=== PATIENT | female | born 1945 | race Caucasian/White ===

== ENCOUNTER 2016-07-09 16:04 | Emergency (ER) | payer MEDICARE, BC ==
[2016-07-09] MEDS ORDERED: Acetaminophen TAB* 325 MG PO ONE (16:23)
--- NOTE | 2016-07-09 16:38 | ED ---
Upper Extremity Pain - HPI Summary HPI Summary: Patient was walking her dog today when the dog suddenly took off, pulling her to the ground in the mud and snow. She caught herself with her right arm and had immediate pain in her right shoulder, to the point that she was unable to get herself off the ground. She denies previous injury to this shoulder. She denies N/T, swelling or bruising. She is right handed. She suffered a scrape to her left cheek and forehead but did not hit her head. - History of Current Complaint Chief Complaint: EDShoulderClaUri Stated Complaint: FALL/SHOULDER INJURY Time Seen by Provider: 07/09/16 16:15 Hx Obtained From: Patient, Family/[employer] Mechanism Of Injury: Fall From A Standing Position Onset/Duration: Started Minutes Ago Timing: Constant Severity Initially: Severe Severity Currently: Severe Pain Location: Shoulder Character: Sharp, Aching Aggravating Factor(s): Movement Alleviating Factor(s): Nothing Associated Signs & Symptoms: Positive: Negative Related History: Dominant Hand Right - Allergies/Home Medications Allergies/Adverse Reactions: Allergies Allergy/AdvReac Type Severity Reaction Status Date / Time sulfer Allergy Rash Uncoded 07/09/16 16:08 Home Medications: Home Medications Hydroxychloroquine TAB* [Plaquenil TAB*] 1 tab PO BID 07/09/16 [History Confirmed 07/09/16] Lisinopril TAB* [Prinivil TAB 5 MG*] 1 tab PO BID 07/09/16 [History Confirmed ] Tofacitinib Citrate [Xeljanz] 5 mg PO BID 07/09/16 [History Confirmed 07/09/16] PMH/Surg Hx/FS Hx/Imm Hx Cardiovascular History: Reports: Hx Coronary Artery Disease Respiratory History: Reports: Hx Chronic Obstructive Pulmonary Disease (COPD) Musculoskeletal History: Reports: Hx Rheumatoid Arthritis Infectious Disease History: No Infectious Disease History: Denies: Traveled Outside the [place] in Last 30 Days - Family History Known Family History: Positive: Cardiac Disease, Hypertension - Social History Occupation: Retired Lives: With Family Alcohol Use: Rare Substance Use Type: Reports: None Smoking Status (MU): Former Smoker Cessation Counseling: Patient Advised to Stop Review of Systems Positive: Arthralgia, Myalgia, Decreased ROM Negative: Bruising Negative: Weakness, Paresthesia, Numbness All Other Systems Reviewed And Are Negative: Yes Physical Exam Triage Information Reviewed: Yes Vital Signs On Initial Exam: Initial Vitals Temp Pulse Resp BP Pulse Ox 96.9 F 57 16 123/46 90 07/09/16 16:09 07/09/16 16:09 07/09/16 16:09 07/09/16 16:09 07/09/16 16:09 Vital Signs Reviewed: Yes Appearance: Positive: Well-Appearing, Well-Nourished, Pain Distress Skin: Positive: Warm, Skin Color Reflects Adequate Perfusion, Dry, Soft Head/Face: Positive: Normal Head/Face Inspection Eyes: Positive: EOMI, MIGNON, Conjunctiva Clear ENT: Positive: Hearing grossly normal Neck: Positive: Supple, Nontender Respiratory/Lung Sounds: Positive: Breath Sounds Present Cardiovascular: Positive: Bradycardia Musculoskeletal: Positive: Limited @ - Any movement in the right shoulder is limited by pain, Pain @ - TTP right proximal humerus Neurological: Positive: Sensory/Motor Intact, Alert, Oriented to Person Place, Time, NV Bundle Intact Distally, Normal Gait Psychiatric: Positive: Affect/Mood Appropriate AVPU Assessment: Alert Procedures - Splinting Location: right shoulder Pre-Made Type: sling Pre-Proc Neuro Vasc Exam: normal Post-Proc Neuro Vasc Exam: normal Diagnostics - Vital Signs Vital Signs Temp Pulse Resp BP Pulse Ox 07/09/16 16:09 96.9 F 57 16 123/46 90 - Laboratory Lab Statement: Any lab studies that have been ordered have been reviewed, and results considered in the medical decision making process. - Radiology No standard instances Xray Interpretation: Positive (See Comments) - Right impacted proximal humerus fracture Radiology Interpretation Completed By: ED Physician Course/Dx - Diagnoses Differential Diagnosis/HQI/PQRI: Positive: Arthritis, Bursitis, Contusion, Fracture (Closed), Hematoma, Laceration, Strain, Sprain Provider Diagnoses: Closed fracture of right proximal humerus Discharge - Discharge Plan Condition: Stable Disposition: HOME Prescriptions: oxyCODONE/Acetamin 5/325 MG* [Percocet 5/325 TAB*] 1 tab PO Q4H PRN #24 tab MDD 6 PRN Reason: Pain Patient Education Materials: Arm Fracture in Adults (ED) Referrals: Chintan Ríos MD [Primary Care Provider] - Gerard Burk MD [Medical Doctor] - Additional Instructions: Please wear your sling at all times to protect your shoulder. Use the pain medication prescribed as needed for pain. Call Dr. Burk's office in the morning for an appointment for evaluation. Return to the emergency department if symptoms worsen.
--- NOTE | 2016-07-09 17:06 | RAD ---
INDICATION: Right shoulder pain COMPARISON: None. TECHNIQUE: 3 views of the right shoulder were obtained. FINDINGS: There is a comminuted and minimally displaced fracture at the surgical neck of the right humerus. Remaining visualized bones are intact and properly aligned. The glenohumeral and acromioclavicular joint spaces are properly aligned. IMPRESSION: COMMINUTED FRACTURE OF THE RIGHT HUMERUS SURGICAL NECK.
[2016-07-09] MEDS ORDERED: oxyCODONE/Acetamin 5/325 MG* TAB PO ONE (17:10)
[2016-07-09 17:16] VITALS: BP 122/93
== END 2016-07-09 17:15 | disposition home or self-care (01) ==
LOC: ED 16:04
DX: S42.201A Unspecified fracture of upper end of right humerus, initial encounter for closed fracture (principal); W19.XXXA Unspecified fall, initial encounter; Y93.K1 Activity, walking an animal; Y92.89 Other specified places as the place of occurrence of the external cause; Z87.891 Personal history of nicotine dependence
CPT/HCPCS: 99282; A9270-GY

== ENCOUNTER 2018-02-07 18:38 | Emergency (ER) | payer MEDICARE, BC ==
--- NOTE | 2018-02-07 19:29 | ED ---
Psychiatric Complaint - HPI Summary HPI Summary: This patient is a 72 year old F BIBA to [facility] c/o SI. The patient recently lost $6,000 in a scam and now may lose her house. Her family is upset with her and she is very distraught. She states it was her whole life savings but her family is supporting her financially. She states she does not really want to kill herself but she does not know what to do. She has not taken any pills in an attempt to kill herself. Her family called the police and she was brought here. Currently she does also c/o MILLS, ear pain, and sore throat. She denies blurred vision, double vision, neck pain, CP, SOB, ABD pain, increased back pain from baseline, dysuria, hematuria, blood in her stool, constipation, edema, auditory hallucinations, and visual hallucinations. Pt is currently taking warfarin. - History Of Current Complaint Chief Complaint: EDMentalHealth Hx Obtained From: Patient Onset/Duration: Still Present Timing: Constant Severity Initially: Moderate Severity Currently: Moderate Character: Depressed Aggravating Factor(s): Recent Stress Has Suicidal: Reports: Thoughts. Denies: With A Plan - Allergies/Home Medications Allergies/Adverse Reactions: Allergies Allergy/AdvReac Type Severity Reaction Status Date / Time Sulfa (Sulfonamide Allergy Rash Verified 02/07/18 18:47 Antibiotics) Home Medications: Home Medications Atorvastatin* [Lipitor*] 20 mg PO DAILY 02/07/18 [History Confirmed 02/07/18] Folic Acid 1 mg PO DAILY 02/07/18 [History Confirmed 02/07/18] Oxybutynin TAB* [Ditropan TAB*] 5 mg PO BID 02/07/18 [History Confirmed 02/07/18 ] Sertraline* [Zoloft*] 100 mg PO DAILY 02/07/18 [History Confirmed 02/07/18] Warfarin TAB(*) [Coumadin TAB(*)] 6 mg PO DAILY@1700 02/07/18 [History Confirmed 02/07/18] PMH/Surg Hx/FS Hx/Imm Hx Cardiovascular History: Reports: Hx Auto Implanted Cardiovert Defib, Hx Coronary Artery Disease Respiratory History: Reports: Hx Chronic Obstructive Pulmonary Disease (COPD) Musculoskeletal History: Reports: Hx Rheumatoid Arthritis Infectious Disease History: No Infectious Disease History: Denies: Traveled Outside the [place] in Last 30 Days - Family History Known Family History: Positive: Cardiac Disease, Hypertension - Social History Occupation: Retired Lives: With Family Alcohol Use: Rare Substance Use Type: Reports: None Smoking Status (MU): Former Smoker Review of Systems Eyes: Negative - double vision Negative: Blurred Vision ENT: Negative - auditory hallucinations, and visual hallucinations. Positive: Sore Throat, Ear Ache Negative: Chest Pain Negative: Shortness Of Breath Gastrointestinal: Negative - blood in her stool, constipation Negative: Abdominal Pain Negative: dysuria, hematuria Musculoskeletal: Negative - neck pain and increased back pain Negative: Edema Positive: Headache Positive: Depressed, Other - SI All Other Systems Reviewed And Are Negative: No Physical Exam - Summary Physical Exam Summary: Appearance: Alert, conversive, nontoxic appearing Skin: Warm, dry, no mottling, no rashes, no contusions HEENT: EOMI, PERRL, moist mucous membranes Neck: No masses on the neck, supple Respiratory: Clear to auscultation, breath sounds present, no rales, no rhonchi , no wheezes Cardiovascular: RRR, pulses are symmetrical in both lower and upper extremities Abdomen: Soft, non-tender Bowel Sounds: Present Musculoskeletal: No CVA tenderness, no obvious deformity, moving all extremities in a grossly normal manner Neurological: A&Ox3, CN II-XII Intact, moving all extremities symmetrically Psychiatric: flat affect, poor judgment, patient is tearful. Triage Information Reviewed: Yes Vital Signs On Initial Exam: Initial Vitals Temp Pulse Resp BP Pulse Ox 98 F 71 16 119/55 96 02/07/18 18:40 02/07/18 18:40 02/07/18 18:40 02/07/18 18:40 02/07/18 18:40 Vital Signs Reviewed: Yes Diagnostics - Vital Signs Vital Signs Temp Pulse Resp BP Pulse Ox 02/07/18 18:40 98 F 71 16 119/55 96 - Laboratory Result Diagrams: 02/07/18 19:49 02/07/18 19:49 Lab Statement: Any lab studies that have been ordered have been reviewed, and results considered in the medical decision making process. - EKG 193 Cardiac Rate: NL EKG Rhythm: Sinus Rhythm - at [address] Segment: Non-Specific Summary of EKG Findings: prolonged QRS, nml QTC, incomplete RBBB, LVH, Re-Evaluation - Re-Evaluation First Eval Re-Evaluation Time: 21:06 Comment: The mental health unit is aware of the patient and that she is cleared for a MHE. Course/Dx - Course Assessment/Plan: This patient is a 72 year old F [place] [facility]. The patient recently lost $6,000 in a scam and now may lose her house. Her family is upset with her and she is very distraught. She states it was her whole life savings but her family is supporting her financially. She states she does not really want to kill herself but she does not know what to do. She has not taken any pills in an attempt to kill herself. Her family called the police and she was brought here. Currently she does also c/o MILLS, ear pain, and sore throat. She denies blurred vision, double vision, neck pain, CP, SOB, ABD pain, increased back pain from baseline, dysuria, hematuria, blood in her stool, constipation, edema, auditory hallucinations, and visual hallucinations. Pt is currently taking warfarin. An EKG reveals NSR, prolonged QRS, nml QTC, incomplete RBBB, LVH,. After a MHE by Dr. Caceres the patient was offered voluntary admission. She declined so the patient was deemed stable to be discharged with a dx of unspecified depressive disorder. - Differential Dx/Clinical Impression Provider Diagnosis: Depressive disorder Discharge - Sign-Out/Discharge Documenting (check all that apply): Patient Departure - Discharge Plan Condition: Stable Disposition: HOME Prescriptions: LORazepam TAB(*) [Ativan 0.5 MG TAB (*)] 0.5 mg PO BID #14 tab MDD 2 Patient Education Materials: Depression (ED), Generalized Anxiety Disorder (ED) , Suicide Prevention (ED) Referrals: Chintan Ríos MD [Primary Care Provider] - Additional Instructions: return if worse or any new symptoms. Take all medications as previously instructed. It is important to follow up with your primary care physician. Followup with [facility] as per the referral. Take the ativan as instructed. If you need a refill, please discuss with your primary care physician or your psychiatrist. - Billing Disposition and Condition Condition: STABLE Disposition: Home - Attestation Statements Document Initiated by Scribe: Yes Documenting Scribe: Hasmukh Hussein Provider For Whom Angelese is Documenting (Include Credential): Chanel Leon MD Scribe Attestation: I, Hasmukh Hussein, scribed for Chanel Leon MD on 02/08/18 at 0322. Scribe Documentation Reviewed: Yes Provider Attestation: The documentation as recorded by the scribeHasmukh accurately reflects the service I personally performed and the decisions made by me, Chanel Leon MD
[2018-02-07 19:54] LABS: Hematocrit 33 % (35-47); Hemoglobin 11.1 g/dl (12.0-16.0); Mean Corpuscular HGB Conc 34 g/dl (31-36); Mean Corpuscular Hemoglobin 32 pg (27-31); Mean Corpuscular Volume 95 fL (80-97); Mean Platelet Volume 8.3 um3 (7.4-10.4); Platelet Count 178 10^3/ul (150-450); Red Blood Count 3.44 10^6/ul (4.00-5.40); Red Cell Distribution Width 15 % (10.5-15); White Blood Count 6.4 10^3/ul (3.5-10.8)
[2018-02-07 20:03] LABS: INR 2.33 (0.77-1.02)
[2018-02-07 20:08] LABS: ABS Basophils 0 10^3/ul (0-0.2); ABS Eosinophils 0.3 10^3/ul (0-0.6); ABS Lymphocytes 0.3 10^3/ul (1.0-4.8); ABS Monocytes 0.4 10^3/ul (0-0.8); ABS Neutrophils 5.3 10^3/ul (1.5-7.7); ABS Nucleated RBC 0 10^3/ul; Eosinophil % 4.9 % (0-6); Lymphocyte % 4.7 % (25-47); Nucleated Red Blood Cells % 0.1
[2018-02-07 20:16] LABS: EGFR Non-African American 38.3 (>60)
[2018-02-07 20:16] LABS: Urine Appearance Cloudy; Urine Blood Negative (Negative); Urine Color Yellow; Urine Ketones Negative (Negative); Urine Protein 1+(30 mg/dL) (Negative); Urine Red Blood Cell 1+(3-5/hpf) (Absent); Urine Specific Gravity 1.018 (1.010-1.030); Urine Urobilinogen Negative (Negative); Urine White Blood Cell Trace(0-5/hpf) (Absent)
[2018-02-07 23:46] VITALS: BP 145/50
[2018-02-08] MEDS ORDERED: LORazepam TAB(*) 0.5 MG PO ONE (01:50)
[2018-02-08] MEDS ORDERED: Acetaminophen TAB* 325 MG ONE (04:35)
== END 2018-02-08 03:16 | disposition home or self-care (01) ==
LOC: ED 18:38
DX: F32.9 Major depressive disorder, single episode, unspecified (principal); Z87.891 Personal history of nicotine dependence; J02.9 Acute pharyngitis, unspecified
CPT/HCPCS: 36415; 80053; 80307; 80320; 80329; 81003; 81015; 83735; 84443; 85025; 85610; 85730; 87086; 93005; 99285; A9270-GY; G0480

== ENCOUNTER 2020-03-01 13:59 | Observation (INO) ==
[2020-03-01 15:32] LABS: ABS Eosinophils 0.1 10^3/ul (0-0.6); ABS Lymphocytes 0.5 10^3/ul (1.0-4.8); ABS Monocytes 0.3 10^3/ul (0-0.8); ABS Neutrophils 2.8 10^3/ul (1.5-7.7); Eosinophil % 2.3 %; Hematocrit 36 % (35-47); Hemoglobin 11.9 g/dL (12.0-16.0); Lymphocyte % 13.2 %; Mean Corpuscular HGB Conc 33 g/dL (31-36); Mean Corpuscular Hemoglobin 32 pg (27-31); Mean Corpuscular Volume 95 fL (80-97); Mean Platelet Volume 8.6 fL (7.4-10.4); Platelet Count 212 10^3/uL (150-450); Red Blood Count 3.78 10^6 /uL (3.70-4.87); Red Cell Distribution Width 14 % (10-15); White Blood Count 3.7 10^3/uL (3.5-10.8)
[2020-03-01 15:40] LABS: INR 1.58 (0.82-1.09)
[2020-03-01 16:03] LABS: ALT 17 U/L (7-52); AST 32 U/L (13-39); Albumin/Globulin Ratio 1.4 (1-3); Alkaline Phosphatase 59 U/L (34-104); Anion Gap 9 mmol/L (2-11); BUN/Creatinine Ratio 11.9 (8-20); Blood Urea Nitrogen 16 mg/dL (6-24); CO2 Carbon Dioxide 24 mmol/L (22-32); Calcium 10.1 mg/dL (8.6-10.3); Chloride 104 mmol/L (101-111); EGFR African American 46.5 (>60); EGFR Non-African American 38.4 (>60); Globulin 2.9 g/dL (2-4); Glucose 80 mg/dL (70-100); Magnesium 1.7 mg/dL (1.9-2.7); Potassium 4.6 mmol/L (3.5-5.0); Sodium 137 mmol/L (135-145); Total Protein 6.9 g/dL (6.4-8.9)
[2020-03-01 16:07] LABS: Troponin I 0.06 ng/mL (<0.03)
[2020-03-01] MEDS ORDERED: Ondansetron 4 mg VIAL 2 MG/ML 2 ml VIAL IV PRN (17:17)
[2020-03-01] MEDS ORDERED: HYDROcodone/ACETAMIN 5/325 mg TAB PO PRN (17:19)
[2020-03-01] MEDS ORDERED: Albuterol HFA INHALER 8 gm MDI INH PRN (17:19)
[2020-03-01] MEDS ORDERED: Magnesium Sulfate 2 gm BAG 2 GM/50 ML BAG IVPB ONE (18:28)
[2020-03-01 19:00] LABS: Troponin I 0.05 ng/mL (<0.03)
[2020-03-01 19:08] LABS: % Iron Saturation 21 % (15-55); Iron 61 ug/dL (50-212); Total Iron Binding Capacity 287 mcg/dL (250-450); Transferrin 205 mg/dL (203-362); Unsaturated Iron Binding < 272 ug/dL
[2020-03-01 19:28] LABS: Ferritin 191.1 ng/mL (11-307)
[2020-03-01] MEDS: PENTOSAN POLYSULFATE 100 MG PO SCH (20:51)
[2020-03-01] MEDS: TOFACITINIB 5 MG PO SCH (20:52)
[2020-03-01 22:00] LABS: Troponin I 0.06 ng/mL (<0.03)
[2020-03-01] MEDS: CMC:Diclofenac 1% GEL (NF) 100 GM TUBE TOPICAL SCH (22:00)
[2020-03-02 06:13] LABS: ABS Eosinophils 0.1 10^3/ul (0-0.6); ABS Lymphocytes 0.3 10^3/ul (1.0-4.8); ABS Monocytes 0.5 10^3/ul (0-0.8); ABS Neutrophils 3.9 10^3/ul (1.5-7.7); Eosinophil % 1.6 %; Hematocrit 36 % (35-47); Hemoglobin 12.1 g/dL (12.0-16.0); Lymphocyte % 6.2 %; Mean Corpuscular HGB Conc 34 g/dL (31-36); Mean Corpuscular Hemoglobin 32 pg (27-31); Mean Corpuscular Volume 94 fL (80-97); Mean Platelet Volume 8.5 fL (7.4-10.4); Platelet Count 188 10^3/uL (150-450); Red Blood Count 3.83 10^6 /uL (3.70-4.87); Red Cell Distribution Width 14 % (10-15); White Blood Count 4.8 10^3/uL (3.5-10.8)
[2020-03-02 06:15] LABS: INR 1.58 (0.82-1.09)
[2020-03-02 06:29] LABS: Anion Gap 8 mmol/L (2-11); BUN/Creatinine Ratio 11.4 (8-20); Blood Urea Nitrogen 16 mg/dL (6-24); CO2 Carbon Dioxide 26 mmol/L (22-32); Calcium 9.4 mg/dL (8.6-10.3); Chloride 104 mmol/L (101-111); EGFR African American 44.6 (>60); EGFR Non-African American 36.9 (>60); Glucose 93 mg/dL (70-100); Magnesium 2.4 mg/dL (1.9-2.7); Potassium 4.2 mmol/L (3.5-5.0); Sodium 138 mmol/L (135-145)
[2020-03-02 06:33] LABS: Troponin I 0.05 ng/mL (<0.03)
[2020-03-02] MEDS ORDERED: Calcium/Vitamin D TAB 250/125 TAB PO SCH (07:30)
[2020-03-02] MEDS ORDERED: Furosemide 40 mg/4 ml IV VIAL IV SLOW PU SCH (08:00)
[2020-03-02] MEDS ORDERED: Tiotropium Brom/Olodaterol MDI INH SCH (09:00)
[2020-03-02] MEDS ORDERED: CMC:Solifenacin 5 mg TAB (NF) PO SCH (09:00)
[2020-03-02] MEDS ORDERED: HYDROcodone/ACETAMIN 5/325 mg TAB PO ONE (09:12)
[2020-03-02] MEDS: CMC:Diclofenac 1% GEL (NF) 100 GM TUBE TOPICAL SCH (09:25)
[2020-03-02] MEDS: TOFACITINIB 5 MG PO SCH (09:26)
[2020-03-02] MEDS: PENTOSAN POLYSULFATE 100 MG PO SCH ×2 (09:26→14:29)
[2020-03-02] MEDS ORDERED: TROLAMINE SALICYL 10% TOPICAL SCH (09:30)
[2020-03-02 15:14] VITALS: BP 94/44
== END 2020-03-02 16:40 | disposition home or self-care (01) ==
LOC: MEDTELE 13:59 → ED 13:59 → MEDTELE 20:12
PROVIDERS: ADMIT Internal Medicine; ATTEND Internal Medicine

== ENCOUNTER 2022-03-12 15:37 | Inpatient (IN) ==
[2022-03-12 16:28] LABS: ABS Eosinophils 0.6 10^3/ul (0-0.6); ABS Lymphocytes 0.2 10^3/ul (1.0-4.8); ABS Monocytes 0.5 10^3/ul (0-0.8); ABS Neutrophils 7.4 10^3/ul (1.5-7.7); Eosinophil % 6.9 %; Hematocrit 30 % (35-47); Hemoglobin 9.9 g/dL (12.0-16.0); Lymphocyte % 2.1 %; Mean Corpuscular HGB Conc 33 g/dL (31-36); Mean Corpuscular Hemoglobin 29 pg (27-31); Mean Corpuscular Volume 89 fL (80-97); Mean Platelet Volume 7.8 fL (7.4-10.4); Platelet Count 309 10^3/uL (150-450); Red Blood Count 3.37 10^6 /uL (3.70-4.87); Red Cell Distribution Width 15 % (10-15); White Blood Count 8.7 10^3/uL (3.5-10.8)
[2022-03-12 16:44] LABS: INR 1.2 (0.89-1.11)
[2022-03-12 17:20] LABS: Albumin 3.4 g/dL (3.2-5.2); Albumin/Globulin Ratio 1.3 (1-3); C Reactive Protein 118.25 mg/L (<8.01); Calcium 8.5 mg/dL (8.6-10.3); Globulin 2.7 g/dL (2-4); Potassium 3.4 mmol/L (3.5-5.0); Total Bilirubin 0.6 mg/dL (0.2-1.0); Total Protein 6.1 g/dL (6.4-8.9); eGFR CKD-EPI 44.9 (>60)
[2022-03-12] MEDS ORDERED: methylPREDNISolone SOD SUCC 125 mg 2 ML VIAL IV ONE (18:08)
[2022-03-12] MEDS ORDERED: Magnesium Sulfate 2 gm BAG 2 GM/50 ML BAG IVPB ONE (18:08)
[2022-03-12] MEDS ORDERED: Iodixanol (CONTRAST) 320 MG/ML 100 ML SDV IV ONE (18:21)
[2022-03-12 18:44] LABS: High Sensitivity Troponin 1 Hr 51 pg/mL (<15)
[2022-03-12] MEDS ORDERED: Furosemide 40 mg/4 ml IV VIAL IV SLOW PU ONE (20:17)
[2022-03-12] MEDS: Furosemide 20 mg/2 ml IV VIAL IV SLOW PU ONE ×2 (20:24→20:27)
[2022-03-12] MEDS ORDERED: Potassium Chlor 20 meq TAB.ER PO ONE (20:27)
[2022-03-12] MEDS ORDERED: Albuterol HFA INHALER 8 gm MDI INH PRN (21:25)
[2022-03-12] MEDS: Heparin 5000 UNITS/ML 1 mL VIAL SUBCUT SCH (21:37)
[2022-03-13] MEDS ORDERED: HYDROcodone/ACETAMIN 5/325 mg TAB PO PRN (03:42)
[2022-03-13 06:08] LABS: Calcium 8.4 mg/dL (8.6-10.3); Magnesium 1.7 mg/dL (1.9-2.7); eGFR CKD-EPI 43.7 (>60)
[2022-03-13] MEDS: Heparin 5000 UNITS/ML 1 mL VIAL SUBCUT SCH ×3 (06:17→21:33)
[2022-03-13 06:23] LABS: Ferritin 187.5 ng/mL (11-307)
[2022-03-13 06:46] LABS: ABS Lymphocytes 0.1 10^3/ul (1.0-4.8); ABS Monocytes 0.2 10^3/ul (0-0.8); ABS Neutrophils 6.7 10^3/ul (1.5-7.7); Eosinophil % 0.2 %; Hematocrit 32 % (35-47); Hemoglobin 10.5 g/dL (12.0-16.0); Lymphocyte % 1.6 %; Mean Corpuscular HGB Conc 33 g/dL (31-36); Mean Corpuscular Hemoglobin 29 pg (27-31); Mean Corpuscular Volume 88 fL (80-97); Mean Platelet Volume 8.1 fL (7.4-10.4); Nucleated Red Blood Cells % 0.1; Platelet Count 302 10^3/uL (150-450); Red Blood Count 3.64 10^6 /uL (3.70-4.87); Red Cell Distribution Width 15 % (10-15)
[2022-03-13] MEDS: Tiotropium Brom/Olodaterol MDI INH SCH (08:34)
[2022-03-13] MEDS: Fluticasone NASAL SPRAY 50MCG 16 gm SPRAY BTL INTRANASAL SCH (08:35)
[2022-03-13] MEDS: NF: Mirabegron 25 mg ER TAB (NF) PO SCH (08:42)
[2022-03-13] MEDS: TOFACITINIB 5 MG PO SCH ×2 (08:42→21:30)
[2022-03-13] MEDS ORDERED: Iron Sucrose 200 MG in NS 0.9% 100 ml BAG 100 ML IVPB ONE (15:20)
[2022-03-13] MEDS ORDERED: Magnesium Sulfate 2 gm BAG 2 GM/50 ML BAG IVPB ONE (15:30)
[2022-03-13] MEDS ORDERED: Furosemide 40 mg/4 ml IV VIAL IV ONE (15:30)
[2022-03-14] MEDS ORDERED: Furosemide 40 mg/4 ml IV VIAL IV ONE (01:00)
[2022-03-14] MEDS: Heparin 5000 UNITS/ML 1 mL VIAL SUBCUT SCH ×3 (05:41→20:52)
[2022-03-14 06:42] LABS: ABS Eosinophils 0.5 10^3/ul (0-0.6); ABS Lymphocytes 0.2 10^3/ul (1.0-4.8); ABS Monocytes 0.5 10^3/ul (0-0.8); ABS Neutrophils 7.1 10^3/ul (1.5-7.7); Eosinophil % 6.4 %; Hematocrit 33 % (35-47); Hemoglobin 11.1 g/dL (12.0-16.0); Lymphocyte % 2.4 %; Mean Corpuscular HGB Conc 33 g/dL (31-36); Mean Corpuscular Hemoglobin 29 pg (27-31); Mean Corpuscular Volume 87 fL (80-97); Mean Platelet Volume 8.1 fL (7.4-10.4); Platelet Count 314 10^3/uL (150-450); Red Blood Count 3.82 10^6 /uL (3.70-4.87); Red Cell Distribution Width 15 % (10-15); White Blood Count 8.3 10^3/uL (3.5-10.8)
[2022-03-14 07:45] LABS: Calcium 8.4 mg/dL (8.6-10.3); Potassium 3.5 mmol/L (3.5-5.0)
[2022-03-14] MEDS: Tiotropium Brom/Olodaterol MDI INH SCH (08:20)
[2022-03-14] MEDS: TOFACITINIB 5 MG PO SCH ×2 (09:21→20:49)
[2022-03-14] MEDS: NF: Mirabegron 25 mg ER TAB (NF) PO SCH (09:23)
[2022-03-14] MEDS: Fluticasone NASAL SPRAY 50MCG 16 gm SPRAY BTL INTRANASAL SCH (10:16)
[2022-03-14 13:16] LABS: C Reactive Protein 111.65 mg/L (<8.01)
[2022-03-14 14:02] LABS: eGFR CKD-EPI 35.3 (>60)
[2022-03-14 14:35] LABS: Magnesium 2.6 mg/dL (1.9-2.7)
[2022-03-14] MEDS: cefTRIAXone 1 gm/50 mL D5W 1 GM/50 ML BAG IV SCH (15:07)
[2022-03-14] MEDS: DOXYcycline 100 MG in NS 0.9% 250 ml 250 ML IVPB SCH (15:07)
[2022-03-14] MEDS ORDERED: NS 0.9% 500 ml BAG 500 ML IV ONE (19:00)
[2022-03-15] MEDS: DOXYcycline 100 MG in NS 0.9% 250 ml 250 ML IVPB SCH ×2 (01:49→14:07)
[2022-03-15] MEDS: Heparin 5000 UNITS/ML 1 mL VIAL SUBCUT SCH ×3 (05:36→21:33)
[2022-03-15] MEDS: Tiotropium Brom/Olodaterol MDI INH SCH (07:28)
[2022-03-15] MEDS ORDERED: NS 0.9% 500 ml BAG 500 ML IV ONE (09:24)
[2022-03-15 09:31] LABS: Calcium 8.5 mg/dL (8.6-10.3); Potassium 3.8 mmol/L (3.5-5.0)
[2022-03-15] MEDS: Fluticasone NASAL SPRAY 50MCG 16 gm SPRAY BTL INTRANASAL SCH (10:22)
[2022-03-15] MEDS: TOFACITINIB 5 MG PO SCH ×2 (10:23→21:32)
[2022-03-15] MEDS: NF: Mirabegron 25 mg ER TAB (NF) PO SCH (10:23)
[2022-03-15] MEDS: cefTRIAXone 1 gm/50 mL D5W 1 GM/50 ML BAG IV SCH (17:17)
[2022-03-16] MEDS: DOXYcycline 100 MG in NS 0.9% 250 ml 250 ML IVPB SCH ×2 (02:39→13:49)
[2022-03-16] MEDS: Heparin 5000 UNITS/ML 1 mL VIAL SUBCUT SCH ×3 (05:36→21:18)
[2022-03-16] MEDS: Tiotropium Brom/Olodaterol MDI INH SCH (07:37)
[2022-03-16] MEDS: Fluticasone NASAL SPRAY 50MCG 16 gm SPRAY BTL INTRANASAL SCH (09:15)
[2022-03-16] MEDS: NF: Mirabegron 25 mg ER TAB (NF) PO SCH (09:16)
[2022-03-16] MEDS: TOFACITINIB 5 MG PO SCH ×2 (09:17→21:20)
[2022-03-16] MEDS: cefTRIAXone 1 gm/50 mL D5W 1 GM/50 ML BAG IV SCH (12:08)
[2022-03-16] MEDS ORDERED: Furosemide 20 mg/2 ml IV VIAL IV SLOW PU ONE (13:45)
[2022-03-17] MEDS: DOXYcycline 100 MG in NS 0.9% 250 ml 250 ML IVPB SCH ×3 (05:23→17:23)
[2022-03-17] MEDS: Heparin 5000 UNITS/ML 1 mL VIAL SUBCUT SCH ×3 (05:37→20:48)
[2022-03-17 06:15] LABS: ABS Eosinophils 0.1 10^3/ul (0-0.6); ABS Lymphocytes 0.3 10^3/ul (1.0-4.8); ABS Monocytes 0.5 10^3/ul (0-0.8); ABS Neutrophils 6.9 10^3/ul (1.5-7.7); Eosinophil % 1.3 %; Hematocrit 28 % (35-47); Lymphocyte % 4.5 %; Mean Corpuscular HGB Conc 33 g/dL (31-36); Mean Corpuscular Hemoglobin 29 pg (27-31); Mean Corpuscular Volume 89 fL (80-97); Mean Platelet Volume 8.1 fL (7.4-10.4); Platelet Count 257 10^3/uL (150-450); Red Blood Count 3.12 10^6 /uL (3.70-4.87); Red Cell Distribution Width 16 % (10-15); White Blood Count 7.8 10^3/uL (3.5-10.8)
[2022-03-17 06:29] LABS: Calcium 7.8 mg/dL (8.6-10.3); Magnesium 1.9 mg/dL (1.9-2.7); Potassium 3.7 mmol/L (3.5-5.0); eGFR CKD-EPI 54.2 (>60)
[2022-03-17] MEDS: Tiotropium Brom/Olodaterol MDI INH SCH (07:35)
[2022-03-17] MEDS: Fluticasone NASAL SPRAY 50MCG 16 gm SPRAY BTL INTRANASAL SCH (09:48)
[2022-03-17] MEDS: TOFACITINIB 5 MG PO SCH ×2 (09:51→20:37)
[2022-03-17] MEDS: NF: Mirabegron 25 mg ER TAB (NF) PO SCH (09:52)
[2022-03-17] MEDS: cefTRIAXone 1 gm/50 mL D5W 1 GM/50 ML BAG IV SCH (11:47)
[2022-03-17] MEDS ORDERED: Cefepime ADVAN 1 GM in NS 0.9% 50 ML 50 ML IVPB SCH (12:00)
[2022-03-17] MEDS: Cefepime 1 GM in Dextrose 1 GM/50 ML BAG IV SCH ×2 (13:11→23:53)
[2022-03-17] MEDS ORDERED: NS 0.9% 500 ml BAG 500 ML IV ONE (13:56)
[2022-03-17] MEDS: methylPREDNISolone SOD SUCC 40 mg/ml 1 ml VIAL IV SCH ×2 (14:42→22:48)
[2022-03-17] MEDS: Saline NASAL SPRAY 0.65% BTL BOTH NARES SCH (20:36)
[2022-03-18] MEDS: DOXYcycline 100 MG in NS 0.9% 250 ml 250 ML IVPB SCH ×2 (04:32→16:41)
[2022-03-18] MEDS: Heparin 5000 UNITS/ML 1 mL VIAL SUBCUT SCH ×3 (05:50→21:26)
[2022-03-18 06:20] LABS: ABS Lymphocytes 0.2 10^3/ul (1.0-4.8); ABS Monocytes 0.3 10^3/ul (0-0.8); ABS Neutrophils 9.7 10^3/ul (1.5-7.7); Eosinophil % 0.1 %; Hematocrit 29 % (35-47); Hemoglobin 9.3 g/dL (12.0-16.0); Lymphocyte % 1.8 %; Mean Corpuscular HGB Conc 32 g/dL (31-36); Mean Corpuscular Hemoglobin 29 pg (27-31); Mean Corpuscular Volume 89 fL (80-97); Platelet Count 276 10^3/uL (150-450); Red Blood Count 3.27 10^6 /uL (3.70-4.87); Red Cell Distribution Width 16 % (10-15); White Blood Count 10.3 10^3/uL (3.5-10.8)
[2022-03-18 06:40] LABS: Calcium 8.2 mg/dL (8.6-10.3); Magnesium 1.8 mg/dL (1.9-2.7); Potassium 4.2 mmol/L (3.5-5.0); eGFR CKD-EPI 52.4 (>60)
[2022-03-18] MEDS: methylPREDNISolone SOD SUCC 40 mg/ml 1 ml VIAL IV SCH ×3 (06:41→22:54)
[2022-03-18] MEDS: Tiotropium Brom/Olodaterol MDI INH SCH (07:56)
[2022-03-18] MEDS: Fluticasone NASAL SPRAY 50MCG 16 gm SPRAY BTL INTRANASAL SCH (08:09)
[2022-03-18] MEDS: TOFACITINIB 5 MG PO SCH ×2 (08:09→20:41)
[2022-03-18] MEDS: Saline NASAL SPRAY 0.65% BTL BOTH NARES SCH ×2 (08:10→20:39)
[2022-03-18] MEDS: NF: Mirabegron 25 mg ER TAB (NF) PO SCH (08:11)
[2022-03-18] MEDS ORDERED: Magnesium Sulfate 2 gm BAG 2 GM/50 ML BAG IVPB ONE (09:30)
[2022-03-18] MEDS: Cefepime 1 GM in Dextrose 1 GM/50 ML BAG IV SCH (12:31)
[2022-03-19] MEDS: Cefepime 1 GM in Dextrose 1 GM/50 ML BAG IV SCH ×2 (00:46→13:55)
[2022-03-19] MEDS: DOXYcycline 100 MG in NS 0.9% 250 ml 250 ML IVPB SCH ×2 (05:03→16:35)
[2022-03-19 06:21] LABS: Hematocrit 27 % (35-47); Hemoglobin 8.9 g/dL (12.0-16.0); Mean Corpuscular HGB Conc 33 g/dL (31-36); Mean Corpuscular Hemoglobin 29 pg (27-31); Mean Corpuscular Volume 89 fL (80-97); Mean Platelet Volume 8.1 fL (7.4-10.4); Platelet Count 254 10^3/uL (150-450); Red Blood Count 3.07 10^6 /uL (3.70-4.87); Red Cell Distribution Width 16 % (10-15); White Blood Count 12.3 10^3/uL (3.5-10.8)
[2022-03-19 06:39] LABS: Albumin 2.8 g/dL (3.2-5.2); Albumin/Globulin Ratio 1.3 (1-3); C Reactive Protein 29.61 mg/L (<8.01); Calcium 7.8 mg/dL (8.6-10.3); Globulin 2.2 g/dL (2-4); Potassium 3.8 mmol/L (3.5-5.0); Total Bilirubin 0.4 mg/dL (0.2-1.0); eGFR CKD-EPI 49.7 (>60)
[2022-03-19] MEDS: methylPREDNISolone SOD SUCC 40 mg/ml 1 ml VIAL IV SCH ×3 (07:27→22:13)
[2022-03-19] MEDS: Heparin 5000 UNITS/ML 1 mL VIAL SUBCUT SCH ×3 (07:29→22:13)
[2022-03-19 08:07] LABS: ABS Lymphocytes 0.2 10^3/ul (1.0-4.8); ABS Monocytes 0.6 10^3/ul (0-0.8); ABS Neutrophils 11.6 10^3/ul (1.5-7.7); Eosinophil % 0.1 %; Lymphocyte % 1.5 %; Nucleated Red Blood Cells % 0.1
[2022-03-19] MEDS: Tiotropium Brom/Olodaterol MDI INH SCH (08:34)
[2022-03-19] MEDS: Fluticasone NASAL SPRAY 50MCG 16 gm SPRAY BTL INTRANASAL SCH (09:46)
[2022-03-19] MEDS: Saline NASAL SPRAY 0.65% BTL BOTH NARES SCH ×3 (09:46→22:21)
[2022-03-19] MEDS: NF: Mirabegron 25 mg ER TAB (NF) PO SCH (09:47)
[2022-03-19] MEDS: TOFACITINIB 5 MG PO SCH ×2 (09:47→22:12)
[2022-03-19] MEDS ORDERED: Albuterol 2.5mg/3 ml (0.083%) NEB.SOLN INH PRN (11:34)
[2022-03-20] MEDS: Cefepime 1 GM in Dextrose 1 GM/50 ML BAG IV SCH (00:40)
[2022-03-20] MEDS: Heparin 5000 UNITS/ML 1 mL VIAL SUBCUT SCH ×3 (05:45→20:47)
[2022-03-20] MEDS: Tiotropium Brom/Olodaterol MDI INH SCH (08:27)
[2022-03-20] MEDS ORDERED: Furosemide 40 mg/4 ml IV VIAL IV ONE (09:59)
[2022-03-20 10:13] LABS: Hematocrit 31 % (35-47); Hemoglobin 9.6 g/dL (12.0-16.0); Mean Corpuscular HGB Conc 31 g/dL (31-36); Mean Corpuscular Hemoglobin 28 pg (27-31); Mean Corpuscular Volume 91 fL (80-97); Mean Platelet Volume 7.7 fL (7.4-10.4); Platelet Count 309 10^3/uL (150-450); Red Blood Count 3.44 10^6 /uL (3.70-4.87); Red Cell Distribution Width 17 % (10-15); White Blood Count 13.5 10^3/uL (3.5-10.8)
[2022-03-20] MEDS: DOXYcycline 100 MG in NS 0.9% 250 ml 250 ML IVPB SCH (10:44)
[2022-03-20] MEDS: methylPREDNISolone SOD SUCC 40 mg/ml 1 ml VIAL IV SCH (10:44)
[2022-03-20] MEDS: Fluticasone NASAL SPRAY 50MCG 16 gm SPRAY BTL INTRANASAL SCH (10:45)
[2022-03-20] MEDS: Saline NASAL SPRAY 0.65% BTL BOTH NARES SCH ×2 (10:45→20:47)
[2022-03-20] MEDS: NF: Mirabegron 25 mg ER TAB (NF) PO SCH (10:48)
[2022-03-20] MEDS: TOFACITINIB 5 MG PO SCH ×2 (10:48→20:49)
[2022-03-20 10:52] LABS: ABS Lymphocytes 0.3 10^3/ul (1.0-4.8); ABS Monocytes 0.3 10^3/ul (0-0.8); ABS Neutrophils 12.8 10^3/ul (1.5-7.7); CO2 Carbon Dioxide 16 mmol/L (22-32); Calcium 7.8 mg/dL (8.6-10.3); Chloride 111 mmol/L (101-111); Eosinophil % 0.3 %; Lymphocyte % 2.1 %; Nucleated Red Blood Cells % 0.1; Sodium 140 mmol/L (135-145)
[2022-03-20 10:53] LABS: Anion Gap 13 mmol/L (2-11)
[2022-03-20 10:57] LABS: Blood Urea Nitrogen 36 mg/dL (6-24); Glucose 115 mg/dL (70-100)
[2022-03-20 12:16] LABS: Potassium, Whole Blood 3.5 mmol/L (3.4-4.5)
[2022-03-20 14:38] LABS: Adenovirus Undetected (Undetected); Bordetella parapertussis Undetected (Undetected); Bordetella pertussis Undetected (Undetected); Chlamydophila pneumoniae Undetected (Undetected); Coronavirus 229E Undetected (Undetected); Coronavirus HKU1 Undetected (Undetected); Coronavirus NL63 Undetected (Undetected); Coronavirus OC43 Undetected (Undetected); Human Metapneumovirus Undetected (Undetected); Human Rhinovirus/Enterovirus Undetected (Undetected); Influenza A Undetected (Undetected); Influenza B Undetected (Undetected); Mycoplasmoides pneumoniae Undetected (Undetected); Parainfluenza Virus 1 Undetected (Undetected); Parainfluenza Virus 2 Undetected (Undetected); Parainfluenza Virus 3 Undetected (Undetected); Parainfluenza Virus 4 Undetected (Undetected); Respiratory Syncytial Virus Undetected (Undetected); Specimen Source NASOPHARYNGEAL SWAB
[2022-03-21] MEDS: Heparin 5000 UNITS/ML 1 mL VIAL SUBCUT SCH ×3 (06:02→23:32)
[2022-03-21] MEDS: TOFACITINIB 5 MG PO SCH ×2 (08:32→20:02)
[2022-03-21] MEDS: Fluticasone NASAL SPRAY 50MCG 16 gm SPRAY BTL INTRANASAL SCH (08:32)
[2022-03-21] MEDS: Saline NASAL SPRAY 0.65% BTL BOTH NARES SCH ×2 (08:34→20:02)
[2022-03-21] MEDS: NF: Mirabegron 25 mg ER TAB (NF) PO SCH (08:34)
[2022-03-21] MEDS: Tiotropium Brom/Olodaterol MDI INH SCH (08:35)
[2022-03-21 16:53] LABS: PCO2 Arterial 28 mmHg (35-45); PO2 Arterial 60 mmHg (80-100)
[2022-03-22] MEDS: Heparin 5000 UNITS/ML 1 mL VIAL SUBCUT SCH (05:39)
[2022-03-22 06:25] LABS: Hematocrit 31 % (35-47); Hemoglobin 10.2 g/dL (12.0-16.0); Mean Corpuscular HGB Conc 33 g/dL (31-36); Mean Corpuscular Hemoglobin 29 pg (27-31); Mean Corpuscular Volume 87 fL (80-97); Platelet Count 290 10^3/uL (150-450); Red Blood Count 3.51 10^6 /uL (3.70-4.87); Red Cell Distribution Width 16 % (10-15); White Blood Count 10.3 10^3/uL (3.5-10.8)
[2022-03-22 06:51] LABS: Calcium 7.8 mg/dL (8.6-10.3); Magnesium 1.9 mg/dL (1.9-2.7); Potassium 3.2 mmol/L (3.5-5.0); eGFR CKD-EPI 54.2 (>60)
[2022-03-22] MEDS ORDERED: Potassium Chloride LIQUID 20 MEQ/15 ML LIQUID PO ONE (08:16)
[2022-03-22] MEDS: Tiotropium Brom/Olodaterol MDI INH SCH (08:57)
[2022-03-22] MEDS ORDERED: Ferric Gluconate IV 250 MG in NS 0.9% 100 ml BAG 200 ML IVPB SCH (09:00)
[2022-03-22] MEDS ORDERED: Enoxaparin 40 MG/0.4 ML SYR SUBCUT SCH (09:00)
[2022-03-22] MEDS: TOFACITINIB 5 MG PO SCH (09:29)
[2022-03-22] MEDS: Fluticasone NASAL SPRAY 50MCG 16 gm SPRAY BTL INTRANASAL SCH (09:32)
[2022-03-22] MEDS: Saline NASAL SPRAY 0.65% BTL BOTH NARES SCH (10:26)
[2022-03-22 11:05] VITALS: BP 104/63
[2022-03-22 12:05] LABS: Cyclic Citrullinated Peptide 62.2 U
== END 2022-03-22 15:55 | disposition home health service (06) | DRG 291 ==
LOC: ED 15:37 → EDHOLD 15:37 → SUATTDRO 21:13 → EDHOLD 03-13 16:42 → MED 03-13 17:29 → SUATTDRO 03-14 09:00
PROVIDERS: ADMIT Internal Medicine; ATTEND Hospitalist

== ENCOUNTER 2022-03-31 20:09 | Inpatient (IN) ==
[2022-03-31 21:44] LABS: ABS Eosinophils 0.8 10^3/ul (0-0.6); ABS Lymphocytes 0.4 10^3/ul (1.0-4.8); ABS Monocytes 0.6 10^3/ul (0-0.8); ABS Neutrophils 7.6 10^3/ul (1.5-7.7); Eosinophil % 8.3 %; Hematocrit 35 % (35-47); Hemoglobin 11.6 g/dL (12.0-16.0); Lymphocyte % 3.9 %; Mean Corpuscular HGB Conc 33 g/dL (31-36); Mean Corpuscular Hemoglobin 29 pg (27-31); Mean Corpuscular Volume 88 fL (80-97); Mean Platelet Volume 8.1 fL (7.4-10.4); Nucleated Red Blood Cells % 0.1; Platelet Count 238 10^3/uL (150-450); Red Blood Count 4.03 10^6 /uL (3.70-4.87); Red Cell Distribution Width 17 % (10-15); White Blood Count 9.4 10^3/uL (3.5-10.8)
[2022-03-31 22:16] LABS: Albumin 3.5 g/dL (3.2-5.2); Albumin/Globulin Ratio 1.2 (1-3); Calcium 9.4 mg/dL (8.6-10.3); Globulin 2.9 g/dL (2-4); Total Bilirubin 0.7 mg/dL (0.2-1.0); Total Protein 6.4 g/dL (6.4-8.9); eGFR CKD-EPI 29.4 (>60)
[2022-03-31 22:18] LABS: Potassium 3.6 mmol/L (3.5-5.0)
[2022-03-31 22:55] LABS: INR 1.13 (0.88-1.18)
[2022-04-01 00:25] LABS: High Sensitivity Troponin 1 Hr 105 pg/mL (<15)
[2022-04-01] MEDS ORDERED: Albuterol HFA INHALER 8 gm MDI INH PRN (03:37)
[2022-04-01] MEDS ORDERED: Enoxaparin 40 MG/0.4 ML SYR SUBCUT SCH ×2 (04:00→09:00)
[2022-04-01 04:34] LABS: Magnesium 1.6 mg/dL (1.9-2.7)
[2022-04-01 05:32] LABS: ABS Eosinophils 0.9 10^3/ul (0-0.6); ABS Lymphocytes 0.3 10^3/ul (1.0-4.8); ABS Monocytes 0.4 10^3/ul (0-0.8); ABS Neutrophils 5.6 10^3/ul (1.5-7.7); Eosinophil % 11.7 %; Hematocrit 33 % (35-47); Hemoglobin 10.9 g/dL (12.0-16.0); Lymphocyte % 4.7 %; Mean Corpuscular HGB Conc 33 g/dL (31-36); Mean Corpuscular Hemoglobin 29 pg (27-31); Mean Corpuscular Volume 86 fL (80-97); Mean Platelet Volume 7.5 fL (7.4-10.4); Platelet Count 219 10^3/uL (150-450); Red Blood Count 3.77 10^6 /uL (3.70-4.87); Red Cell Distribution Width 17 % (10-15); White Blood Count 7.3 10^3/uL (3.5-10.8)
[2022-04-01 06:17] LABS: Calcium 8.9 mg/dL (8.6-10.3); Potassium 3.1 mmol/L (3.5-5.0); eGFR CKD-EPI 34.2 (>60)
[2022-04-01] MEDS ORDERED: Potassium Chloride LIQUID 20 MEQ/15 ML LIQUID PO ONE (06:19)
[2022-04-01] MEDS: Potassium Chloride LIQUID 20 MEQ/15 ML LIQUID PO ONE ×3 (08:53→09:27)
[2022-04-01] MEDS: Tiotropium Brom/Olodaterol MDI INH SCH (09:16)
[2022-04-01] MEDS ORDERED: NS 0.9% 1000 ml BAG 1,000 ML IV ONE (10:36)
[2022-04-01] MEDS: NF: Mirabegron 25 mg ER TAB (NF) PO SCH (13:20)
[2022-04-01] MEDS: TOFACITINIB 5 MG PO SCH ×2 (14:38→20:35)
[2022-04-01] MEDS: CALCIUM CARBONATE VIT D3 MIN PO SCH ×2 (14:39→17:23)
[2022-04-01] MEDS: CALCIUM PO SCH ×2 (14:39→17:23)
[2022-04-01] MEDS: Lactated Ringers 1000 ml BAG 1,000 ML IV ONE (15:53)
[2022-04-01] MEDS: Enoxaparin 30 MG/0.3 ML SYR SUBCUT SCH (20:36)
[2022-04-02 06:57] LABS: ABS Eosinophils 0.3 10^3/ul (0-0.6); ABS Lymphocytes 0.2 10^3/ul (1.0-4.8); ABS Monocytes 0.4 10^3/ul (0-0.8); ABS Neutrophils 6.2 10^3/ul (1.5-7.7); Eosinophil % 4.6 %; Hematocrit 26 % (35-47); Lymphocyte % 3.1 %; Mean Corpuscular HGB Conc 34 g/dL (31-36); Mean Corpuscular Hemoglobin 30 pg (27-31); Mean Corpuscular Volume 87 fL (80-97); Mean Platelet Volume 8.3 fL (7.4-10.4); Platelet Count 167 10^3/uL (150-450); Red Blood Count 3.02 10^6 /uL (3.70-4.87); Red Cell Distribution Width 17 % (10-15); White Blood Count 7.3 10^3/uL (3.5-10.8)
[2022-04-02] MEDS: Tiotropium Brom/Olodaterol MDI INH SCH (07:15)
[2022-04-02 07:25] LABS: Calcium 8.2 mg/dL (8.6-10.3); Magnesium 1.6 mg/dL (1.9-2.7); Potassium 3.6 mmol/L (3.5-5.0); eGFR CKD-EPI 48.2 (>60)
[2022-04-02] MEDS: CALCIUM CARBONATE VIT D3 MIN PO SCH (07:30)
[2022-04-02] MEDS: CALCIUM PO SCH (07:30)
[2022-04-02] MEDS ORDERED: Magnesium Sulf 4 GM/100 ML IV 4,000 MG/100 ML BAG IVPB ONE (09:51)
[2022-04-02] MEDS ORDERED: NS 0.9% 1000 ml BAG 1,000 ML IV ONE (10:22)
[2022-04-02] MEDS: NF: Mirabegron 25 mg ER TAB (NF) PO SCH (10:41)
[2022-04-02] MEDS: TOFACITINIB 5 MG PO SCH ×2 (10:41→21:44)
[2022-04-02] MEDS: Calcium/Vitamin D TAB 250/125 TAB PO SCH (16:35)
[2022-04-02] MEDS ORDERED: Potassium Chlor 20 meq TAB.ER PO ONE (19:54)
[2022-04-02] MEDS: Enoxaparin 30 MG/0.3 ML SYR SUBCUT SCH (21:44)
[2022-04-02] MEDS: NS 0.9% 1000 ml BAG 1,000 ML IV SCH (21:44)
[2022-04-03] MEDS: NS 0.9% 1000 ml BAG 1,000 ML IV SCH (03:38)
[2022-04-03] MEDS: Tiotropium Brom/Olodaterol MDI INH SCH (07:07)
[2022-04-03 07:13] LABS: ABS Eosinophils 0.3 10^3/ul (0-0.6); ABS Lymphocytes 0.2 10^3/ul (1.0-4.8); ABS Monocytes 0.5 10^3/ul (0-0.8); ABS Neutrophils 6.7 10^3/ul (1.5-7.7); Eosinophil % 3.4 %; Hematocrit 26 % (35-47); Hemoglobin 8.9 g/dL (12.0-16.0); Lymphocyte % 3.1 %; Mean Corpuscular HGB Conc 34 g/dL (31-36); Mean Corpuscular Hemoglobin 29 pg (27-31); Mean Corpuscular Volume 87 fL (80-97); Platelet Count 165 10^3/uL (150-450); Red Blood Count 3.05 10^6 /uL (3.70-4.87); Red Cell Distribution Width 17 % (10-15); White Blood Count 7.7 10^3/uL (3.5-10.8)
[2022-04-03 08:05] LABS: Calcium 7.7 mg/dL (8.6-10.3); Magnesium 2.3 mg/dL (1.9-2.7); Potassium 4.2 mmol/L (3.5-5.0); eGFR CKD-EPI 53.6 (>60)
[2022-04-03] MEDS ORDERED: Magnesium Sulf 4 GM/100 ML IV 4,000 MG/100 ML BAG IVPB ONE (08:30)
[2022-04-03] MEDS: TOFACITINIB 5 MG PO SCH ×2 (10:29→20:11)
[2022-04-03] MEDS: Calcium/Vitamin D TAB 250/125 TAB PO SCH ×2 (10:30→16:55)
[2022-04-03] MEDS: NF: Mirabegron 25 mg ER TAB (NF) PO SCH (10:35)
[2022-04-03] MEDS: Enoxaparin 30 MG/0.3 ML SYR SUBCUT SCH (20:12)
[2022-04-03] MEDS: HYDROcodone/ACETAMIN 5/325 mg TAB PO PRN (22:09)
[2022-04-04] MEDS ORDERED: Furosemide 20 mg/2 ml IV VIAL IV ONE ×2 (04:27→06:13)
[2022-04-04] MEDS ORDERED: Furosemide 20 mg/2 ml IV VIAL ONE (04:29)
[2022-04-04 04:36] LABS: Hematocrit 30 % (35-47); Hemoglobin 9.9 g/dL (12.0-16.0); Mean Corpuscular HGB Conc 33 g/dL (31-36); Mean Corpuscular Hemoglobin 29 pg (27-31); Mean Corpuscular Volume 88 fL (80-97); Platelet Count 200 10^3/uL (150-450); Red Cell Distribution Width 18 % (10-15); White Blood Count 10.2 10^3/uL (3.5-10.8)
[2022-04-04 05:23] LABS: Calcium 8.2 mg/dL (8.6-10.3); Magnesium 2.9 mg/dL (1.9-2.7); Potassium 4.7 mmol/L (3.5-5.0); eGFR CKD-EPI 50.2 (>60)
[2022-04-04 06:50] LABS: PCO2 Arterial 43 mmHg (35-45)
[2022-04-04 06:52] LABS: PO2 Arterial < 38 mmHg (80-100)
[2022-04-04] MEDS ORDERED: Furosemide 40 mg/4 ml IV VIAL IV SLOW PU ONE ×2 (06:59→10:04)
[2022-04-04 07:00] LABS: High Sensitivity Troponin 1 Hr 92 pg/mL (<15)
[2022-04-04 07:00] LABS: ABS Eosinophils 0.1 10^3/ul (0-0.6); ABS Lymphocytes 0.2 10^3/ul (1.0-4.8); ABS Monocytes 0.6 10^3/ul (0-0.8); ABS Neutrophils 9.3 10^3/ul (1.5-7.7); Eosinophil % 1.2 %; Lymphocyte % 2.3 %
[2022-04-04] MEDS ORDERED: Furosemide 40 mg/4 ml IV VIAL ONE (07:05)
[2022-04-04] MEDS: Tiotropium Brom/Olodaterol MDI INH SCH (07:25)
[2022-04-04 08:10] LABS: PCO2 Arterial 36 mmHg (35-45); PO2 Arterial 80 mmHg (80-100)
[2022-04-04 08:45] LABS: High Sensitivity Troponin 3 Hr 85 pg/mL (<15)
[2022-04-04] MEDS: NF: Mirabegron 25 mg ER TAB (NF) PO SCH (11:47)
[2022-04-04] MEDS: Calcium/Vitamin D TAB 250/125 TAB PO SCH ×2 (12:27→15:31)
[2022-04-04] MEDS: TOFACITINIB 5 MG PO SCH (12:28)
[2022-04-04] MEDS: methylPREDNISolone SOD SUCC 125 mg 2 ML VIAL IV SCH ×2 (13:33→23:02)
[2022-04-04] MEDS ORDERED: Lactated Ringers 1000 ml BAG 500 ML IV SCH (16:16)
[2022-04-04] MEDS ORDERED: Albuterol/Ipratropium NEB.SOL (2.5/0.5 MG) 3 ML NEB.SOLN INH PRN (16:47)
[2022-04-04] MEDS: Lidocaine PATCH 5% PATCH TRANSDERM SCH (17:17)
[2022-04-04] MEDS: Enoxaparin 30 MG/0.3 ML SYR SUBCUT SCH (20:18)
[2022-04-05] MEDS: methylPREDNISolone SOD SUCC 125 mg 2 ML VIAL IV SCH ×3 (06:14→20:47)
[2022-04-05 06:47] LABS: ABS Lymphocytes 0.1 10^3/ul (1.0-4.8); ABS Monocytes 0.3 10^3/ul (0-0.8); ABS Neutrophils 8.9 10^3/ul (1.5-7.7); Eosinophil % 0.3 %; Hematocrit 27 % (35-47); Hemoglobin 9.2 g/dL (12.0-16.0); Lymphocyte % 1.6 %; Mean Corpuscular HGB Conc 34 g/dL (31-36); Mean Corpuscular Hemoglobin 30 pg (27-31); Mean Corpuscular Volume 87 fL (80-97); Mean Platelet Volume 8.1 fL (7.4-10.4); Nucleated Red Blood Cells % 0.1; Platelet Count 149 10^3/uL (150-450); Red Blood Count 3.08 10^6 /uL (3.70-4.87); Red Cell Distribution Width 18 % (10-15); White Blood Count 9.4 10^3/uL (3.5-10.8)
[2022-04-05] MEDS: HYDROcodone/ACETAMIN 5/325 mg TAB PO PRN (07:24)
[2022-04-05 07:46] LABS: Magnesium 2.1 mg/dL (1.9-2.7); Potassium 4.1 mmol/L (3.5-5.0); eGFR CKD-EPI 51.8 (>60)
[2022-04-05] MEDS: Calcium/Vitamin D TAB 250/125 TAB PO SCH ×2 (07:54→16:32)
[2022-04-05] MEDS ORDERED: Piperacillin/Tazobac ADVAN 3.375 GM in NS 0.9% 100 ml BAG 100 ML IV ONE (09:56)
[2022-04-05] MEDS ORDERED: Zosyn per Pharmacy NOTE FOLLOW UP SCH (10:00)
[2022-04-05] MEDS: ZOSYN 3.375 GM Q8H per EXTENDED INFUSION IV SCH ×2 (16:32→23:52)
[2022-04-05] MEDS: Lidocaine PATCH 5% PATCH TRANSDERM SCH (16:32)
[2022-04-05] MEDS: Enoxaparin 30 MG/0.3 ML SYR SUBCUT SCH (20:47)
[2022-04-06 04:53] LABS: Hematocrit 24 % (35-47); Mean Corpuscular HGB Conc 33 g/dL (31-36); Mean Corpuscular Hemoglobin 29 pg (27-31); Mean Corpuscular Volume 88 fL (80-97); Red Blood Count 2.78 10^6 /uL (3.70-4.87); Red Cell Distribution Width 18 % (10-15); White Blood Count 8.8 10^3/uL (3.5-10.8)
[2022-04-06 05:17] LABS: Blood Urea Nitrogen 26 mg/dL (6-24); CO2 Carbon Dioxide 23 mmol/L (22-32); Calcium 7.7 mg/dL (8.6-10.3); Chloride 102 mmol/L (101-111); Glucose 129 mg/dL (70-100); Magnesium 1.9 mg/dL (1.9-2.7); Sodium 138 mmol/L (135-145); eGFR CKD-EPI 51.8 (>60)
[2022-04-06 05:20] LABS: Anion Gap 13 mmol/L (2-11)
[2022-04-06 05:47] LABS: ABS Lymphocytes 0.1 10^3/ul (1.0-4.8); ABS Monocytes 0.3 10^3/ul (0-0.8); ABS Neutrophils 8.3 10^3/ul (1.5-7.7); Eosinophil % 0.5 %; Mean Platelet Volume 9.7 fL (7.4-10.4); Nucleated Red Blood Cells % 0.1; Platelet Count 78 10^3/uL (150-450)
[2022-04-06 06:08] LABS: Hematocrit 26 % (35-47); Hemoglobin 8.8 g/dL (12.0-16.0); Mean Corpuscular HGB Conc 34 g/dL (31-36); Mean Corpuscular Hemoglobin 30 pg (27-31); Mean Corpuscular Volume 87 fL (80-97); Mean Platelet Volume 8.3 fL (7.4-10.4); Platelet Count 152 10^3/uL (150-450); Red Blood Count 2.97 10^6 /uL (3.70-4.87); Red Cell Distribution Width 18 % (10-15); White Blood Count 9.8 10^3/uL (3.5-10.8)
[2022-04-06] MEDS: methylPREDNISolone SOD SUCC 125 mg 2 ML VIAL IV SCH (06:29)
[2022-04-06 06:46] LABS: ABS Lymphocytes 0.1 10^3/ul (1.0-4.8); ABS Monocytes 0.3 10^3/ul (0-0.8); ABS Neutrophils 9.3 10^3/ul (1.5-7.7); Lymphocyte % 1.1 %; Nucleated Red Blood Cells % 0.1
[2022-04-06] MEDS: Calcium/Vitamin D TAB 250/125 TAB PO SCH ×2 (08:17→17:18)
[2022-04-06] MEDS: ZOSYN 3.375 GM Q8H per EXTENDED INFUSION IV SCH ×2 (08:19→15:45)
[2022-04-06] MEDS: Lidocaine PATCH 5% PATCH TRANSDERM SCH (18:09)
[2022-04-06] MEDS: Enoxaparin 30 MG/0.3 ML SYR SUBCUT SCH (20:49)
[2022-04-06] MEDS: methylPREDNISolone SOD SUCC 40 mg/ml 1 ml VIAL IV SCH (21:04)
[2022-04-07] MEDS: HYDROcodone/ACETAMIN 5/325 mg TAB PO PRN (01:00)
[2022-04-07 05:00] LABS: ABS Lymphocytes 0.1 10^3/ul (1.0-4.8); ABS Monocytes 0.4 10^3/ul (0-0.8); ABS Neutrophils 8.2 10^3/ul (1.5-7.7); Eosinophil % 0.1 %; Hematocrit 25 % (35-47); Hemoglobin 8.3 g/dL (12.0-16.0); Lymphocyte % 1.3 %; Mean Corpuscular HGB Conc 33 g/dL (31-36); Mean Corpuscular Hemoglobin 29 pg (27-31); Mean Corpuscular Volume 87 fL (80-97); Mean Platelet Volume 8.4 fL (7.4-10.4); Nucleated Red Blood Cells % 0.1; Platelet Count 169 10^3/uL (150-450); Red Blood Count 2.88 10^6 /uL (3.70-4.87); Red Cell Distribution Width 18 % (10-15); White Blood Count 8.7 10^3/uL (3.5-10.8)
[2022-04-07 05:33] LABS: Calcium 7.5 mg/dL (8.6-10.3); Magnesium 1.8 mg/dL (1.9-2.7); Phosphorus 2.3 mg/dL (2.5-5.0); Potassium 3.6 mmol/L (3.5-5.0); eGFR CKD-EPI 51.3 (>60)
[2022-04-07] MEDS: Calcium/Vitamin D TAB 250/125 TAB PO SCH ×2 (10:17→17:07)
[2022-04-07] MEDS: methylPREDNISolone SOD SUCC 40 mg/ml 1 ml VIAL IV SCH ×2 (10:17→22:05)
[2022-04-07] MEDS: Potassium Chlor 20 meq TAB.ER PO SCH (10:18)
[2022-04-07] MEDS: ZOSYN 3.375 GM Q8H per EXTENDED INFUSION IV SCH ×3 (11:45→17:05)
[2022-04-07] MEDS: Lidocaine PATCH 5% PATCH TRANSDERM SCH (17:05)
[2022-04-07 17:45] LABS: Magnesium 1.8 mg/dL (1.9-2.7); Potassium 4.2 mmol/L (3.5-5.0)
[2022-04-07] MEDS: Enoxaparin 30 MG/0.3 ML SYR SUBCUT SCH (22:04)
[2022-04-08] MEDS: ZOSYN 3.375 GM Q8H per EXTENDED INFUSION IV SCH ×3 (00:38→16:41)
[2022-04-08 04:27] LABS: Calcium 7.6 mg/dL (8.6-10.3); Magnesium 1.8 mg/dL (1.9-2.7); Potassium 4.3 mmol/L (3.5-5.0); eGFR CKD-EPI 54.8 (>60)
[2022-04-08] MEDS ORDERED: LORazepam 2 mg VIAL 1 ml IV PUSH ONE (05:51)
[2022-04-08] MEDS ORDERED: Lorazepam PYXIS KEY PRN (05:51)
[2022-04-08] MEDS ORDERED: Furosemide 40 mg/4 ml IV VIAL IV SLOW PU ONE (06:13)
[2022-04-08] MEDS: methylPREDNISolone SOD SUCC 40 mg/ml 1 ml VIAL IV SCH ×2 (08:01→21:40)
[2022-04-08] MEDS: Calcium/Vitamin D TAB 250/125 TAB PO SCH ×2 (08:02→16:45)
[2022-04-08] MEDS: Potassium Chlor 20 meq TAB.ER PO SCH (08:03)
[2022-04-08 14:08] LABS: Hematocrit 27 % (35-47); Hemoglobin 8.9 g/dL (12.0-16.0); Mean Corpuscular HGB Conc 33 g/dL (31-36); Mean Corpuscular Hemoglobin 29 pg (27-31); Mean Corpuscular Volume 89 fL (80-97); Mean Platelet Volume 8.4 fL (7.4-10.4); Platelet Count 192 10^3/uL (150-450); Red Blood Count 3.07 10^6 /uL (3.70-4.87); Red Cell Distribution Width 18 % (10-15); White Blood Count 8.8 10^3/uL (3.5-10.8)
[2022-04-08 14:36] LABS: Calcium 7.9 mg/dL (8.6-10.3); Magnesium 1.7 mg/dL (1.9-2.7)
[2022-04-08] MEDS ORDERED: Magnesium Sulfate IV 1GM/100ML 1 GM/100 ML BAG IV ONE (15:19)
[2022-04-08] MEDS: Lidocaine PATCH 5% PATCH TRANSDERM SCH (17:32)
[2022-04-08] MEDS: Enoxaparin 30 MG/0.3 ML SYR SUBCUT SCH (21:46)
[2022-04-09] MEDS: ZOSYN 3.375 GM Q8H per EXTENDED INFUSION IV SCH ×4 (00:11→23:41)
[2022-04-09] MEDS ORDERED: Magnesium Sulfate 2 gm BAG 2 GM/50 ML BAG IVPB ONE (06:13)
[2022-04-09] MEDS: Calcium/Vitamin D TAB 250/125 TAB PO SCH ×2 (07:54→17:29)
[2022-04-09] MEDS ORDERED: Furosemide 40 mg/4 ml IV VIAL IV ONE (08:02)
[2022-04-09] MEDS: methylPREDNISolone SOD SUCC 40 mg/ml 1 ml VIAL IV SCH ×2 (09:07→21:22)
[2022-04-09] MEDS: Potassium Chlor 20 meq TAB.ER PO SCH (09:10)
[2022-04-09] MEDS: Lidocaine PATCH 5% PATCH TRANSDERM SCH (17:33)
[2022-04-09 18:37] LABS: Calcium 7.7 mg/dL (8.6-10.3); Magnesium 2.3 mg/dL (1.9-2.7); Potassium 4.4 mmol/L (3.5-5.0); eGFR CKD-EPI 54.2 (>60)
[2022-04-09] MEDS: Enoxaparin 40 MG/0.4 ML SYR SUBCUT SCH (21:20)
[2022-04-10] MEDS ORDERED: Benzocaine/Menthol LOZ PO PRN (03:23)
[2022-04-10] MEDS ORDERED: Lidocaine 1% MPF 5 ML VIAL INJ ONE (04:55)
[2022-04-10 05:12] LABS: Hematocrit 29 % (35-47); Hemoglobin 9.8 g/dL (12.0-16.0); Mean Corpuscular HGB Conc 34 g/dL (31-36); Mean Corpuscular Hemoglobin 29 pg (27-31); Mean Corpuscular Volume 87 fL (80-97); Mean Platelet Volume 8.2 fL (7.4-10.4); Platelet Count 217 10^3/uL (150-450); Red Blood Count 3.35 10^6 /uL (3.70-4.87); Red Cell Distribution Width 18 % (10-15); White Blood Count 10.1 10^3/uL (3.5-10.8)
[2022-04-10 05:31] LABS: ABS Eosinophils 0.2 10^3/ul (0-0.6); ABS Lymphocytes 0.2 10^3/ul (1.0-4.8); ABS Monocytes 0.4 10^3/ul (0-0.8); ABS Neutrophils 9.4 10^3/ul (1.5-7.7); Anisocytosis 1+; Eosinophil % 2.2 %; Lymphocyte % 1.5 %; Nucleated Red Blood Cells % 0.1
[2022-04-10 05:32] LABS: Polychromasia 1+
[2022-04-10 05:41] LABS: Calcium 7.6 mg/dL (8.6-10.3); Magnesium 2.1 mg/dL (1.9-2.7); Potassium 4.6 mmol/L (3.5-5.0); eGFR CKD-EPI 54.2 (>60)
[2022-04-10] MEDS: Calcium/Vitamin D TAB 250/125 TAB PO SCH ×2 (08:01→17:25)
[2022-04-10] MEDS: ZOSYN 3.375 GM Q8H per EXTENDED INFUSION IV SCH ×2 (08:01→17:26)
[2022-04-10] MEDS: Potassium Chlor 20 meq TAB.ER PO SCH (09:39)
[2022-04-10] MEDS: methylPREDNISolone SOD SUCC 40 mg/ml 1 ml VIAL IV SCH ×2 (09:41→20:21)
[2022-04-10] MEDS ORDERED: Furosemide 40 mg/4 ml IV VIAL IV ONE (10:07)
[2022-04-10] MEDS ORDERED: LORazepam 2 mg VIAL 1 ml IV PUSH PRN (15:19)
[2022-04-10] MEDS ORDERED: Lorazepam PYXIS KEY PRN (15:19)
[2022-04-10] MEDS: Lidocaine PATCH 5% PATCH TRANSDERM SCH (17:31)
[2022-04-10] MEDS ORDERED: Albumin Human 5% 12.5 GM/250 ML BTL IV ONE ×2 (19:53→20:28)
[2022-04-10 20:23] LABS: PCO2 Arterial 37 mmHg (35-45)
[2022-04-10 20:24] LABS: PO2 Arterial 54 mmHg (80-100)
[2022-04-10] MEDS: Enoxaparin 40 MG/0.4 ML SYR SUBCUT SCH (20:47)
[2022-04-11 05:29] LABS: Hematocrit 28 % (35-47); Hemoglobin 9.5 g/dL (12.0-16.0); Mean Corpuscular HGB Conc 34 g/dL (31-36); Mean Corpuscular Hemoglobin 29 pg (27-31); Mean Corpuscular Volume 85 fL (80-97); Mean Platelet Volume 7.6 fL (7.4-10.4); Platelet Count 197 10^3/uL (150-450); Red Blood Count 3.28 10^6 /uL (3.70-4.87); Red Cell Distribution Width 18 % (10-15); White Blood Count 8.6 10^3/uL (3.5-10.8)
[2022-04-11 05:43] LABS: ABS Eosinophils 0.2 10^3/ul (0-0.6); ABS Lymphocytes 0.2 10^3/ul (1.0-4.8); ABS Monocytes 0.3 10^3/ul (0-0.8); ABS Neutrophils 7.8 10^3/ul (1.5-7.7); Eosinophil % 2.6 %; Lymphocyte % 2.3 %; Nucleated Red Blood Cells % 0.1
[2022-04-11 06:22] LABS: Calcium 7.6 mg/dL (8.6-10.3); Magnesium 1.9 mg/dL (1.9-2.7); Potassium 4.5 mmol/L (3.5-5.0); eGFR CKD-EPI 54.2 (>60)
[2022-04-11] MEDS ORDERED: Magnesium Sulfate 2 gm BAG 2 GM/50 ML BAG ONE (08:30)
[2022-04-11] MEDS: ZOSYN 3.375 GM Q8H per EXTENDED INFUSION IV SCH ×5 (08:30→20:36)
[2022-04-11] MEDS ORDERED: Albumin Human 25% 12.5 GM/50 ML BTL IV ONE (08:30)
[2022-04-11] MEDS ORDERED: .Amiodarone 24HR ONLY IV Protocol Order Note IV ONE (08:48)
[2022-04-11] MEDS ORDERED: Amiodarone 150 mg IVPREMIX 150 MG/100 ML BAG IV ONE ×2 (08:48→08:55)
[2022-04-11] MEDS ORDERED: Amiodarone 360 MG IVPREMIX 360 MG/200 ML BAG IV SCH (09:00)
[2022-04-11] MEDS: Lactated Ringers 1000 ml BAG 1,000 ML IV ONE (09:19)
[2022-04-11] MEDS ORDERED: LORazepam 2 mg VIAL 1 ml IV PUSH ONE (09:27)
[2022-04-11] MEDS ORDERED: Lorazepam PYXIS KEY PRN (09:27)
[2022-04-11] MEDS ORDERED: Lactated Ringers 1000 ml BAG 1,000 ML IV ONE (09:27)
[2022-04-11] MEDS: Calcium/Vitamin D TAB 250/125 TAB PO SCH ×2 (09:29→16:30)
[2022-04-11] MEDS: Potassium Chlor 20 meq TAB.ER PO SCH (09:30)
[2022-04-11] MEDS: XELJANZ 5 MG PO SCH ×2 (11:35→20:51)
[2022-04-11] MEDS: Norepinephrine 16MCG/ML BAGD5W 4,000 MCG/250 ML BAG IV SCH (12:18)
[2022-04-11] MEDS ORDERED: Amiodarone IV 150 mg/3 ml VIAL SLOW PUSH ONE (14:00)
[2022-04-11] MEDS: Amiodarone 360 MG IVPREMIX 360 MG/200 ML BAG IV SCH ×2 (15:01→21:34)
[2022-04-11] MEDS ORDERED: Magnesium Sulfate 2 gm BAG 2 GM/50 ML BAG IVPB ONE (16:36)
[2022-04-11] MEDS: Lidocaine PATCH 5% PATCH TRANSDERM SCH (18:22)
[2022-04-11] MEDS: methylPREDNISolone SOD SUCC 40 mg/ml 1 ml VIAL IV SCH ×2 (20:14→20:15)
[2022-04-11] MEDS: Enoxaparin 40 MG/0.4 ML SYR SUBCUT SCH (20:51)
[2022-04-12 05:41] LABS: Hematocrit 27 % (35-47); Hemoglobin 9.1 g/dL (12.0-16.0); Mean Corpuscular HGB Conc 34 g/dL (31-36); Mean Corpuscular Hemoglobin 29 pg (27-31); Mean Corpuscular Volume 85 fL (80-97); Mean Platelet Volume 7.6 fL (7.4-10.4); Platelet Count 171 10^3/uL (150-450); Red Blood Count 3.15 10^6 /uL (3.70-4.87); Red Cell Distribution Width 18 % (10-15); White Blood Count 10.2 10^3/uL (3.5-10.8)
[2022-04-12 06:25] LABS: Calcium 7.8 mg/dL (8.6-10.3); Magnesium 2.4 mg/dL (1.9-2.7); eGFR CKD-EPI 62.5 (>60)
[2022-04-12] MEDS: ZOSYN 3.375 GM Q8H per EXTENDED INFUSION IV SCH (06:43)
[2022-04-12 07:23] LABS: ABS Eosinophils 0.6 10^3/ul (0-0.6); ABS Lymphocytes 0.2 10^3/ul (1.0-4.8); ABS Monocytes 0.2 10^3/ul (0-0.8); ABS Neutrophils 9.2 10^3/ul (1.5-7.7); Lymphocyte % 2.1 %
[2022-04-12] MEDS: Amiodarone 360 MG IVPREMIX 360 MG/200 ML BAG IV SCH (07:25)
[2022-04-12] MEDS: Potassium Chlor 20 meq TAB.ER PO SCH (09:00)
[2022-04-12] MEDS: XELJANZ 5 MG PO SCH ×2 (09:00→21:10)
[2022-04-12] MEDS: Calcium/Vitamin D TAB 250/125 TAB PO SCH ×2 (09:00→17:30)
[2022-04-12] MEDS: methylPREDNISolone SOD SUCC 40 mg/ml 1 ml VIAL IV SCH ×2 (09:00→21:07)
[2022-04-12 09:57] LABS: Ferritin 526.2 ng/mL (11-307)
[2022-04-12] MEDS: Norepinephrine 16MCG/ML BAGD5W 4,000 MCG/250 ML BAG IV SCH (15:19)
[2022-04-12] MEDS ORDERED: Norepinephrine 16MCG/ML BAGD5W 4,000 MCG/250 ML BAG IV SCH (16:45)
[2022-04-12] MEDS: Lidocaine PATCH 5% PATCH TRANSDERM SCH (17:36)
[2022-04-12] MEDS ORDERED: LORazepam 2 mg VIAL 1 ml IV PUSH ONE (20:09)
[2022-04-12] MEDS ORDERED: Lorazepam PYXIS KEY PRN (20:09)
[2022-04-12] MEDS: Enoxaparin 40 MG/0.4 ML SYR SUBCUT SCH (21:08)
[2022-04-12] MEDS: Acetylcysteine 600mgCAP(RENAL) PO SCH (21:10)
[2022-04-12 23:43] LABS: Aspergillus (Galactomannan) Ag <0.500 index (<0.5)
[2022-04-13 06:11] LABS: ABS Eosinophils 0.1 10^3/ul (0-0.6); ABS Lymphocytes 0.3 10^3/ul (1.0-4.8); ABS Monocytes 0.3 10^3/ul (0-0.8); Hematocrit 28 % (35-47); Hemoglobin 8.8 g/dL (12.0-16.0); Mean Corpuscular HGB Conc 32 g/dL (31-36); Mean Corpuscular Hemoglobin 28 pg (27-31); Mean Corpuscular Volume 89 fL (80-97); Platelet Count 183 10^3/uL (150-450); Red Blood Count 3.11 10^6 /uL (3.70-4.87); Red Cell Distribution Width 18 % (10-15); White Blood Count 12.6 10^3/uL (3.5-10.8)
[2022-04-13 06:47] LABS: Calcium 8.4 mg/dL (8.6-10.3); Phosphorus 2.9 mg/dL (2.5-5.0); Potassium 4.4 mmol/L (3.5-5.0); eGFR CKD-EPI 66.7 (>60)
[2022-04-13] MEDS: Calcium/Vitamin D TAB 250/125 TAB PO SCH ×2 (08:48→16:52)
[2022-04-13] MEDS ORDERED: Calcium Carb (TUMS) 500 mg CHEW TAB PO PRN (08:51)
[2022-04-13] MEDS: Acetylcysteine 600mgCAP(RENAL) PO SCH ×2 (08:51→20:28)
[2022-04-13] MEDS: methylPREDNISolone SOD SUCC 40 mg/ml 1 ml VIAL IV SCH (08:52)
[2022-04-13] MEDS ORDERED: Calcium Carb (TUMS) 500 mg CHEW TAB ONE (08:56)
[2022-04-13] MEDS: Potassium Chlor 20 meq TAB.ER PO SCH (09:00)
[2022-04-13] MEDS: XELJANZ 5 MG PO SCH (09:02)
[2022-04-13] MEDS: TOFACITINIB CITRATE 5 MG PO SCH (20:28)
[2022-04-13] MEDS: Lidocaine PATCH 5% PATCH TRANSDERM SCH (20:33)
[2022-04-13] MEDS: Enoxaparin 40 MG/0.4 ML SYR SUBCUT SCH (20:34)
[2022-04-14] MEDS ORDERED: Lorazepam PYXIS KEY PRN ×2 (02:27→17:51)
[2022-04-14] MEDS ORDERED: LORazepam 2 mg VIAL 1 ml IV PUSH ONE ×2 (02:28→11:12)
[2022-04-14 05:10] LABS: Hematocrit 29 % (35-47); Hemoglobin 9.4 g/dL (12.0-16.0); Mean Corpuscular HGB Conc 32 g/dL (31-36); Mean Corpuscular Hemoglobin 29 pg (27-31); Mean Corpuscular Volume 89 fL (80-97); Platelet Count 190 10^3/uL (150-450); Red Blood Count 3.28 10^6 /uL (3.70-4.87); Red Cell Distribution Width 18 % (10-15); White Blood Count 12.1 10^3/uL (3.5-10.8)
[2022-04-14 05:55] LABS: Calcium 8.8 mg/dL (8.6-10.3); Magnesium 1.8 mg/dL (1.9-2.7); Phosphorus 3.8 mg/dL (2.5-5.0); Potassium 4.5 mmol/L (3.5-5.0); eGFR CKD-EPI 60.2 (>60)
[2022-04-14] MEDS ORDERED: Magnesium Sulfate IV 1GM/100ML 1 GM/100 ML BAG IV ONE (06:04)
[2022-04-14] MEDS: Potassium Chloride LIQUID 20 MEQ/15 ML LIQUID PO SCH (09:41)
[2022-04-14] MEDS: Acetylcysteine 600mgCAP(RENAL) PO SCH ×2 (09:43→20:56)
[2022-04-14] MEDS: Calcium/Vitamin D TAB 250/125 TAB PO SCH ×2 (09:43→17:07)
[2022-04-14] MEDS: TOFACITINIB CITRATE 5 MG PO SCH ×2 (09:46→21:00)
[2022-04-14] MEDS ORDERED: Furosemide 20 mg/2 ml IV VIAL IV SLOW PU ONE (11:05)
[2022-04-14] MEDS ORDERED: Morphine 2 MG/ML SYRINGE IV ONE (11:34)
[2022-04-14] MEDS ORDERED: Morphine 2 MG/ML SYRINGE IV PRN (17:50)
[2022-04-14] MEDS ORDERED: LORazepam 2 mg VIAL 1 ml IV PUSH PRN (17:51)
[2022-04-14] MEDS: Lidocaine PATCH 5% PATCH TRANSDERM SCH (20:55)
[2022-04-14] MEDS: Enoxaparin 40 MG/0.4 ML SYR SUBCUT SCH (20:57)
[2022-04-15 04:42] LABS: Hematocrit 29 % (35-47); Hemoglobin 9.6 g/dL (12.0-16.0); Mean Corpuscular HGB Conc 34 g/dL (31-36); Mean Corpuscular Hemoglobin 30 pg (27-31); Mean Corpuscular Volume 88 fL (80-97); Mean Platelet Volume 7.9 fL (7.4-10.4); Platelet Count 213 10^3/uL (150-450); Red Blood Count 3.24 10^6 /uL (3.70-4.87); Red Cell Distribution Width 19 % (10-15); White Blood Count 11.9 10^3/uL (3.5-10.8)
[2022-04-15 05:13] LABS: Calcium 8.7 mg/dL (8.6-10.3); Phosphorus 4.3 mg/dL (2.5-5.0); Potassium 4.5 mmol/L (3.5-5.0)
[2022-04-15] MEDS: Calcium/Vitamin D TAB 250/125 TAB PO SCH (08:35)
[2022-04-15] MEDS ORDERED: Lorazepam PYXIS KEY PRN ×2 (11:10→11:18)
[2022-04-15] MEDS ORDERED: Morphine 4 MG/ML VIAL (1 ml) IV ONE (11:10)
[2022-04-15] MEDS ORDERED: LORazepam 2 mg VIAL 1 ml IV PUSH ONE (11:11)
[2022-04-15] MEDS ORDERED: LORazepam 2 mg VIAL 1 ml IV PUSH PRN (11:18)
[2022-04-15] MEDS ORDERED: Lorazepam PYXIS KEY ONE (11:24)
[2022-04-15] MEDS ORDERED: LORazepam 2 mg VIAL 1 ml ONE (11:24)
[2022-04-15] MEDS ORDERED: Morphine 10 MG/ML VIAL (1 ml) ONE (11:24)
[2022-04-15] MEDS: Morphine 10 MG/ML VIAL (1 ml) IV PRN ×3 (11:41→12:34)
[2022-04-15 12:01] VITALS: BP 140/74
[2022-04-15] MEDS: Acetylcysteine 600mgCAP(RENAL) PO SCH (13:32)
[2022-04-15] MEDS: TOFACITINIB CITRATE 5 MG PO SCH (13:34)
[2022-04-15] MEDS: Potassium Chloride LIQUID 20 MEQ/15 ML LIQUID PO SCH (13:34)
== END 2022-04-15 12:50 | disposition expired | DRG 682 ==
LOC: ED 20:09 → EDHOLD 20:09 → SUATTDRO 04-01 03:23 → EDHOLD 04-01 12:38 → MEDTELE 04-01 17:09 → SUATTDRO 04-02 09:00 → ICU 04-04 10:24
PROVIDERS: ADMIT Internal Medicine; ATTEND Internal Medicine